=== PATIENT | male | born 2005 | race Hispanic/Latino ===

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

== ENCOUNTER 2025-02-03 00:10 | Emergency (ER) | payer SELFPAY, OTHER ==
[2025-02-03 00:54] LABS: Absolute Lymphocytes (CBC) 1.4 K/uL (0.7-4.9); Hematocrit 44.7 % (39.6-49.0); Hemoglobin 15.0 g/dL (13.6-17.9); MCH 30.0 pg (27.0-35.0); MCHC 33.6 g/dL (32.0-36.0); MCV 89.4 fL (80-100); MPV 8.4 fL (7.6-11.3); Nucleated RBC Absolute Count 0.0 (0-0); Nucleated Red Blood Cells % 0.1 % (0-0); RBC Red Blood Cell Count 5.00 M/uL (4.33-5.43); White Blood Count 7.30 thou/uL (4.3-10.9)
[2025-02-03 01:01] LABS: PT Prothrombin Time 12.9 SECONDS (10-13.0); PTT, Activated Partial Thromb 29.6 SECONDS (27.2-37.4); Protime INR 1.15
[2025-02-03 01:13] LABS: ALT/SGPT 32 U/L (16-61); AST/SGOT 21 U/L (15-37); Albumin 3.6 g/dL (3.4-5.0); Albumin/Globulin Ratio 1.1 (1.1-1.8); Alkaline Phosphatase 90 U/L (45-117); Anion Gap 6.5 mEq/L (5.0-15.0); BUN Blood Urea Nitrogen 12 mg/dL (7-18); Globulin 3.4 g/dL (2.3-3.5); Glucose Level 100 mg/dL (74-106); Potassium 3.5 mEq/L (3.5-5.1); Troponin High Sensitivity 3.8 pg/mL (<58.9)
[2025-02-03] MEDS ORDERED: MORPHINE 2 MG/ML SYR ONE (01:13)
[2025-02-03] MEDS ORDERED: NA CHLORIDE 0.9% 1,000 ML ONE (01:13)
[2025-02-03] MEDS ORDERED: ONDANSETRON 4 MG/2 ML VIAL ONE (01:13)
[2025-02-03 01:14] LABS: Bilirubin Indirect, Calculated 0.2 mg/dL (0.2-0.8)
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
[2025-02-03 02:53] LABS: Sqamous Epithelial None Seen /HPF (None Seen); Urine Culture Reflex Order NOT NEEDED; Urine Microscopic Reflex YN ORDER UMIC
[2025-02-03 03:03] LABS: METHAMPHETAM NEGATIVE (NEGATIVE); THC Cannibis NEGATIVE (NEGATIVE)
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
[2025-02-03 10:54] VITALS: TEMP 98.9
[2025-02-03 11:03] VITALS: BP 108/57; O2SAT 99
== END 2025-02-03 03:44 | disposition home or self-care (01) ==
LOC: ER 00:10
DX: R07.9 Chest pain, unspecified (principal); M79.632 Pain in left forearm; R51.9 Headache, unspecified; V47.5XXA Car driver injured in collision with fixed or stationary object in traffic accident, initial encounter
CPT/HCPCS: 36415; 70450; 71045; 71260; 72125; 74177; 80048; 80076; 80307; 81001; 84484; 85025; 85610; 85730; 96361; 96374; 96375; 99284; J2270; J2405; J7030; Q9967